=== PATIENT | female | born 1990 | race Caucasian/White ===

== ENCOUNTER 2017-12-26 07:44 | Day surgery (SDC) | payer OTHER ==
[2017-12-26] MEDS ORDERED: LIDOCAINE 4% SOLUTION 50 ML BTL (09:46)
[2017-12-26] MEDS ORDERED: MIDAZOLAM 1 MG/ML 2 ML INJ ×2 (10:52→10:53)
[2017-12-26] MEDS ORDERED: FENTAnyl 50 MCG/ML VIAL (10:53)
== END 2017-12-26 14:51 | disposition home or self-care (01) ==
LOC: GIL 07:44
DX: R12 Heartburn (principal); K21.0 Gastro-esophageal reflux disease with esophagitis; K64.4 Residual hemorrhoidal skin tags
CPT/HCPCS: 43239; 88305; 88312; 88313